=== PATIENT | male | born 1950 | race Two or more races ===

== ENCOUNTER 2018-01-22 19:24 | Emergency (ER) | payer OTHER ==
[~2018-01-22] VITALS: Ht 167.6 cm; Wt 64.9 kg
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
[2018-01-23 04:17] VITALS: BP 121/76
== END 2018-01-23 04:17 | disposition home or self-care (01) ==
LOC: ER 19:27
DX: F10.129 Alcohol abuse with intoxication, unspecified (principal); I10 Essential (primary) hypertension; Y90.9 Presence of alcohol in blood, level not specified
CPT/HCPCS: 99283; A4606; Z7610